=== PATIENT | female | born 1930 | race Caucasian/White ===

== ENCOUNTER 2016-12-03 11:30 | Observation (INO) | payer OTHER, BC ==
--- NOTE | 2016-12-03 11:36 | PDOC ---
History of Present Illness - General History Source: Patient Exam Limitations: No Limitations - History of Present Illness Initial Comments: 12/03/16 13:31 The patient is a 86 year old female, BIBA with a significant past medical history of diabetes (noncompliant), HTN, hyperchostermia, and CHF who presents to the emergency department with possible TIA/CVA. The patient reports this morning being well, (pt notes some right eye tearing, and mild right eye pain which is chronic). The daughter reports around 10:30am today the patient developing dizziness, a few minutes later pt developed some slurred speech, and daugther noted pt had left sided facial droope/weakness [place] a [place]. Daughter reports the patientdizziness/speech problem aslting approx 15 minutes. As per EMS upon ED arrival the patient was nonverbal and cannot speak in full sentences or answer their questions. EMS reports enroute to the ER symptoms completely resolving and returning to baseline. Patient was here 2-3 weeks ago with right sided eye pain and weakness. Pts BGM was 70 per EMS, and was noted to be very hypertensive in the 200s upontheir arrival. She denies chest pain and shortness of breath. She denies fever and chills She denies nausea, vomit, diarrhea and constipation. She denies dysuria, frequency, urgency and hematuria. Allergies: Lactose Social history: Former smoker. PCP: <Dell Patel - Last Filed: 12/03/16 13:39> <Balwinder Marquez - Last Filed: 12/03/16 21:39> - General Chief Complaint: CVA/TIA Stated Complaint: CVA/TIA Time Seen by Provider: 12/03/16 11:36 Past History <Dell Patel - Last Filed: 12/03/16 13:39> - Past Medical History Anemia: No Asthma: No Cancer: No Cardiac Disorders: No CVA: No COPD: No CHF: Yes Dementia: No Diabetes: Yes GI Disorders: No Disorders: No HTN: Yes Hypercholesterolemia: Yes Liver Disease: No Seizures: No Thyroid Disease: No - Surgical History Abdominal Surgery: No Appendectomy: No Cardiac Surgery: No Cholecystectomy: Yes Lung Surgery: No Neurologic Surgery: No Orthopedic Surgery: No - Psycho/Social/Smoking Cessation Hx Suicidal Ideation: No Smoking History: Never smoked Have you smoked in the past 12 months: No Hx Alcohol Use: Yes (SOCIAL) Drug/Substance Use Hx: No Substance Use Type: None Hx Substance Use Treatment: No <Balwinder Marquez - Last Filed: 12/03/16 21:39> - Past Medical History Allergies/Adverse Reactions: Allergies Allergy/AdvReac Type Severity Reaction Status Date / Time lactose Allergy Mild Verified 12/03/16 12:03 Home Medications: Ambulatory Orders Aspirin Coated [Ecotrin -] 81 mg PO DAILY #0 tablet.ec 09/15/12 Atenolol [Tenormin -] 25 mg PO DAILY #0 tablet 09/15/12 Quinapril HCl [Accupril -] 20 mg PO DAILY #0 tablet 09/15/12 Rosuvastatin Calcium [Crestor] 10 mg PO UTDICT 12/03/16 Review of Systems - Review of Systems Able to Perform ROS?: Yes Comments:: 12/03/16 13:31 CONSTITUTIONAL: Reported: Generalized Weakness. No reported: Fever, Chills, Diaphoresis, Malaise , Loss of Appetite HEENT: No reported: Rhinorrhea, Nasal Congestion, Throat Pain, Throat Swelling, Difficulty Swallowing, Mouth Swelling, Ear Pain, Eye Pain, Visual Changes CARDIOVASCULAR: No reported: Chest Pain, Syncope, Palpitations, Irregular Heart Rate, Lightheadedness, Peripheral Edema RESPIRATORY: No reported: Cough, Shortness of Breath, SOB with Exertion, Orthopnea, Wheezing , Stridor, Hemoptysis GASTROINTESTINAL: No reported: Abdominal pain, Abdominal Distension, Nausea, Vomiting, Diarrhea, Constipation, Melena, Hematochezia GENITOURINARY: No reported: Dysuria, Frequency, Urgency, Hesitancy, Flank Pain, Genital Pain MUSCULOSKELETAL: No reported: Myalgia, Arthralgia, Joint Swelling, Back pain, Neck Pain SKIN: No reported: Rash, Itching, Pallor HEMEATOLOGIC/IMMUNOLOGIC: No reported: Easy Bleeding, Easy Bruising, Lymphadenopathy, Frequent infections ENDOCRINE: No reported: Unexplained Weight Gain, Unexplained Weight Loss, Heat Intolerance , Cold Intolerance NEUROLOGIC: Reported: slurred speech and dizziness, weakeness . No reported: Headache, Unsteady Gait, Seizure, Mental Status Changes, Incontinence PSYCHIATRIC: No reported: Anxiety, Depression <Dell Patel - Last Filed: 12/03/16 13:39> *Physical Exam - Vital Signs Last Vital Signs Temp Pulse Resp BP Pulse Ox 98.2 F 68 18 217/88 0 L 12/03/16 11:36 12/03/16 11:36 12/03/16 11:36 12/03/16 11:36 12/03/16 11:36 - Physical Exam Comments: 12/03/16 13:32 GENERAL: The patient is awake, alert, and fully oriented, Nontoxic - in no acute distress. HEAD: Normocephalic, atraumatic. EYES: extraocular movements intact, sclera anicteric, conjunctiva clear. ENT: Normal voice, Moist mucous membranes. NECK: Normal range of motion, supple LUNGS: Breath sounds equal, clear to auscultation bilaterally. No wheezes, no rhonchi, no rales. HEART: Regular rate and rhythm, without murmur, rub or gallop. ABDOMEN: Soft, nontender, normoactive bowel sounds. No guarding, no rebound.No CVA tenderness EXTREMITIES: Normal range of motion, no edema. No clubbing or cyanosis. No cords , erythema, or tenderness. NEUROLOGICAL: Mental status: The patient is oriented x3. Cranial nerves: Cranial nerves II through XII are intact Motor: The upper extremities are 5 over 5 in all muscle groups. The lower extremities are 5 over 5 in all muscle groups. No pronator drift. Sensation: Sensation is intact to light touch throughout. Neg romberg Cerebellar: Fhyooz-rutqhi-kakt is normal in both upper extremities. Heel-knee- mcallister is normal in both lower extremities. Reflexes: +1 b/l patellar erflexes Gait : deferred PSYCH: Normal mood, normal affect. SKIN: Warm, Dry, normal turgor. <Dell Patel - Last Filed: 12/03/16 13:39> NIH Stroke Scale - Last Known Well Date/Time & Onset Date Last Known Well: 12/03/16 Time Last Known Well: 10:30 - Initial Evaluation Level of consciousness: Alert Ask patient the month and their age: Answers both correctly Ask patient to open & close eyes; make fist and let go: Obeys both correctly Best gaze (horizontal eye movement): Normal Visual field testing: No visual field loss Facial paresis (Show teeth/raise eyebrows/close eyes tight): Normal symmetrical movement Motor Function: Left Arm: Normal Motor Function: Right Arm: Normal (extends arm 90 (or 45) degrees for 10 seconds without drift Motor Function: Left Leg: Normal (extends leg 30 degrees for 5 seconds without drift) Motor Function: Right Leg: Normal (extends leg 30 degrees for 5 seconds without drift) Limb Ataxia: No ataxia Sensory(Use pinprick test arms,legs,trunk,face/side to side): Normal Best language (Describe picture, name items, read sentences): No Aphasia Dysarthria (read several words): Normal articulation Extinction and Inattention: No abnormality - Total Score NIH Stroke Scale Score: 0 <Balwinder Marquez - Last Filed: 12/03/16 21:39> tPA Exclusion Checklist 0-3hr - Time Elapsed Date last known well: 12/03/16 Time last known well: 10:30 Elaspsed time: Day(s) and 11 Hour(s) and 9 Minutes - Thrombolytic Therapy Candidate Is the patient eligible for Thrombolytic Therapy?: No - Relative Exclusion Criteria 0-3h Rapid improvement: Yes - Ineligibility reason(s) Reasons No tPA given: See reason(s) noted above <Balwinder Marquez - Last Filed: 12/03/16 21:39> Heart Score/ECG Review - ECG Impressions Comment:: 12/03/16 11:50 Twelve-lead EKG was performed and reviewed by me. There is normal sinus rhythm with a normal rate. lvh Abnormal R wave progression There are no ST or T wave abnormalities. <Balwinder Marquez - Last Filed: 12/03/16 21:39> Critical Care Time/MDM Note - Medical Decision Making Note: 12/03/16 11:43 Documentation prepared by Dell Patel, acting as medical technicians for Balwinder Marquez MD. 12/03/16 12:[address] (STROKE) impressions reported by : No evidence of acute intracranial hemorrhage, edema, midline shift, mass effect , or skull fracture. No CT evidence of acute territorial infarction. 12/03/16 12:21 CHEST X-RAY impressions reported by : Large heart. No acute pathology. 12/03/16 13:33 Call made to 's office was sent to [employer] twice. 12/03/16 13:39 Microblog sent to and call made to office, awaiting call back. <Dell Patel - Last Filed: 12/03/16 13:39> - Medical Decision Making Note: 12/03/16 11:38 86y F hx of htn, hl presents with sudden onset of dizziness[place]dysarthria [place], without associated headache, vision changes. There was left sided weakness (facial droop/left arm weakness per daugther) pt was standing at the time and was ambulatory with assistance from family - sypmtoms onset approx 10: 30am, resolved by the time she was boarding the ambulance (~approx 15 min), pts BP noted to be elevated to 200s systolic. BGM of 70. On arrival the pts bp was hypertensive, but neuro exam was unremarabkle code gold was initiated not TPA candidate due to rapid resolution of sypmtoms case d/w dr. Capone (NEuro) if CT negative, will give ASA pt endorses being noncompliant with meds. A portion of this note was documented by scribe services under my direction. I have reviewed the details of the note, within reason, and agree with the documentation with the following case summary and management plan written by me 12/03/16 13:[address] head negative for acute findings will admit for further workup pt given ASA will admit under charlie long service I spent ~35 minutes of Critical Care time, excluding separately billable procedures, involving high complexity decision making to assess, manipulate and support vital system function(s) to treat single or multiple vital organ system failure and/or to prevent further life threatening deterioration of the patient' s condition. 12/03/16 15:58 dr. chowdhury is on vacation hospitlaist covering d/w dr. fernandez agreed with management and observation status for further eavluation of TIA Case discussed in detail with admitting physician including history, physical exam and ancillary studies. Admitting physician has assumed care for the patient, will follow all pending diagnostics and will complete the evaluation and treatment. <Balwinder Marquez - Last Filed: 12/03/16 21:39> Discharge Disposition <Dell Patel - Last Filed: 12/03/16 13:39> - Discharge Dispostion Admit: Yes <Balwinder Marquez - Last Filed: 12/03/16 21:39> - Diagnosis TIA (transient ischemic attack) Qualifiers: Transient cerebral ischemia type: unspecified Qualified Code(s): G45.9 - Transient cerebral ischemic attack, unspecified - Referrals
[2016-12-03 11:37] VITALS: BMI 20.1
[2016-12-03] MEDS ORDERED: SODIUM CHLORIDE 1,000 ML IV SCH (11:45)
[2016-12-03 12:06] LABS: EOSINOPHIL 3.8 % (0-4.5); MCH 29.9 pg (25.7-33.7); MCHC 33.1 g/dl (32.0-36.0); MEAN CELL VOLUME 90.3 fl (80-96); MEAN PLT VOLUME 7.5 fl (7.5-11.1); NEUTROPHILS 70.5 % (42.8-82.8); PLATELET COUNT 369 K/MM3 (134-434); RDW 13.2 % (11.6-15.6); WHITE BLOOD COUNT 9.1 K/mm3 (4.0-10.0)
[2016-12-03] MEDS ORDERED: ASPIRIN 81 MG CHEWABLE TABLETS PO ONE (12:06)
[2016-12-03] MEDS ORDERED: ASPIRIN 81 MG CHEWABLE TABLETS ONE (12:10)
[2016-12-03 12:22] LABS: INR 0.98 (0.82-1.09); PROTHROMBIN TIME (PATIENT) 10.8 SEC (9.98-11.88)
[2016-12-03 12:31] LABS: ALBUMIN 3.7 g/dl (3.4-5.0); ANION GAP 8 (8-16); BILIRUBIN,TOTAL 0.3 mg/dL (0.2-1.0); CALCIUM 9.5 mg/dL (8.5-10.1); CHOLESTEROL 178 mg/dL (50-200); CO2 26 mmol/L (21-32); GLUCOSE,RANDOM 169 mg/dL (74-106); LDL CHOLESTEROL (ONLY SJRH) 112 mg/dL (5-100); SGOT/AST 17 U/L (15-37); SGPT/ALT 20 U/L (12-78); TOT PROT 6.9 g/dl (6.4-8.2)
[2016-12-03 12:32] LABS: ALK PHOS 79 U/L (45-117); TROPONIN I < 0.02 ng/ml (0.00-0.05)
--- NOTE | 2016-12-03 13:19 | CONSULT ---
Consult Consult Specialty:: Neurology - History of Present Illness Chief Complaint: lightheadedness associated with diffficulty speaking History of Present Illness: 86 yo with hTistory of diabetes (noncompliant), HTN, hyperchostermia, and CHF was transferred via ambulance to the ED after [place]. She states she forgot her medication but did have breakfast. She said she felt lightheaded and had difficulty speaking, however by the time EMS arrived she was feeling fine. (symptoms onset 10am) The patient had no evidence of stroke with neg CT and resolution of symptoms TPA is not indicated. - History Source Limitations to Obtaining History: No Limitations - Alcohol/Substance Use Hx Alcohol Use: Yes (SOCIAL) - Smoking History Smoking history: Never smoked Have you smoked in the past 12 months: No Home Medications - Allergies Allergies/Adverse Reactions: Allergies Allergy/AdvReac Type Severity Reaction Status Date / Time lactose Allergy Mild Verified 12/03/16 12:03 - Home Medications Home Medications: Ambulatory Orders Aspirin Coated [Ecotrin -] 81 mg PO DAILY #0 tablet.ec 09/15/12 Atenolol [Tenormin -] 25 mg PO DAILY #0 tablet 09/15/12 Quinapril HCl [Accupril -] 20 mg PO DAILY #0 tablet 09/15/12 Rosuvastatin Calcium [Crestor] 10 mg PO UTDICT 12/03/16 Physical Exam Vital Signs: Vital Signs Temperature 98.2 F 12/03/16 11:36 Pulse Rate 64 12/03/16 12:03 Respiratory Rate 18 12/03/16 12:03 Blood Pressure 121/82 12/03/16 12:03 O2 Sat by Pulse Oximetry (%) 100 12/03/16 12:03 Constitutional: Yes: Well Nourished, No Distress, Calm Eyes: Yes: Conjunctiva Clear, EOM Intact, PERRL. No: Diplopia, Ptosis HENT: Yes: Atraumatic Neck: Yes: Supple Cardiovascular: Yes: Regular Rate and Rhythm Respiratory: Yes: Regular Gastrointestinal: Yes: Soft Neurological: Yes: Alert, Oriented, Babinski negative, Cran Nerves II-XII Intact. No: Aphasia, Ataxia, Dysarthria, Loss of Sensation, Paresthesia, Unsteady Gait, Weakness Labs: CBC, BMP 12/03/16 11:55 12/03/16 11:55 Assessment/Plan Acute syncope, likely vasovagal however a cardiac etiology or lacunar infarct cannot be excluded with hx of poor compliance with treatment of long standing DM and HTN CT neg however will order MRI with MRA to asses for arterial stenosis and lacunar infarctions. P: TPA not indicated with no evidence of acute infarct Optimize medical condition with aggressive management of chronic medical conditions to reduce stroke risk by strict control of BP, Lipids and glucose Antiplatelet therapy per IM/Cardiology as indicated with vascular disease risk factors and comorbid medical illness.
[2016-12-03 14:13] LABS: URINE APPEARANCE CLEAR; URINE BILIRUBIN NEGATIVE (NEGATIVE); URINE BLOOD NEGATIVE (NEGATIVE); URINE COLOR STRAW; URINE GLUCOSE (UA) NEGATIVE (NEGATIVE); URINE KETONE NEGATIVE (NEGATIVE); URINE NITRITE NEGATIVE (NEGATIVE); URINE PROTEIN NEGATIVE (NEGATIVE); URINE UROBILINOGEN NEGATIVE E.U./dl (0.2-1.0)
[2016-12-03 14:14] LABS: URINE LEUK ESTERASE TRACE (NEGATIVE)
[2016-12-03 14:17] LABS: URINE HYALINE CAST 1 /lpf; URINE RBC 1 /hpf (0-3); URINE WBC 3 /hpf (3-5)
--- NOTE | 2016-12-03 16:35 | HP ---
PCP: Jessee Jean-Baptiste CHIEF COMPLAINT: Dizziness HISTORY OF PRESENT ILLNESS This is an 86-year-old woman who comes to the ER today because of dizziness. Around 10:30 am, she developed lightheadedness. Within the next 10 minutes, her daughter noted her speech was slurred and the left side of her face appeared weak. EMS was called. Her SBP was in the 200s and fingerstick in the 70s. EMS noted that she was unable to answer questions or speak in full sentences. While in the ambulance, she returned to her baseline. The entire episode lasted 20-30 minutes. She had not taken her BP medications this morning. She is on no diabetes medication because she was unable to tolerate metformin. She had been seen in the ER on 11/06/16 for right eye pain and dizziness. Symptoms resolved. Head CT showed right falguni bullosa and thickened mucosa or polyp in left maxillary sinus. She was discharged and advised to follow-up with Dr. Jean-Baptiste. PAST MEDICAL HISTORY Hypertension Hyperlipidemia Type 2 diabetes mellitus PAST SURGICAL HISTORY Cholecystectomy Allergies lactose Allergy (Mild, Verified 12/03/16 12:03) HOME MEDICATIONS 3 Medication Instructions Recorded Aspirin Coated [Ecotrin -] 81 mg PO DAILY #0 tablet.ec 09/15/12 Atenolol [Tenormin -] 25 mg PO DAILY #0 tablet 09/15/12 Quinapril HCl [Accupril -] 20 mg PO DAILY #0 tablet 09/15/12 Rosuvastatin Calcium [Crestor] 10 mg PO UTDICT 12/03/16 Social History: Smoking: Former smoker Alcohol: Rare Drugs: None Recent Travel: No Family History: Non-contributory REVIEW OF SYSTEMS CONSTITUTIONAL: Absent: fever, chills, diaphoresis, generalized weakness, malaise, loss of appetite, weight change HEENT: Present: right eye pain. Absent: rhinorrhea, nasal congestion, throat pain, throat swelling, difficulty swallowing, mouth swelling, ear pain, visual changes CARDIOVASCULAR: Present: lightheadedness. Absent: chest pain, syncope, palpitations, peripheral edema RESPIRATORY: Absent: cough, shortness of breath, dyspnea with exertion, orthopnea, wheezing, stridor, hemoptysis GASTROINTESTINAL: Absent: abdominal pain, abdominal distension, nausea, vomiting , diarrhea, constipation, melena, hematochezia GENITOURINARY: Absent: dysuria, frequency, urgency, hesitancy, hematuria, flank pain MUSCULOSKELETAL: Absent: myalgia, arthralgia, joint swelling, back pain, neck pain SKIN: Absent: rash, itching, pallor HEMATOLOGIC/IMMUNOLOGIC: Absent: easy bleeding, easy bruising, lymphadenopathy, frequent infections ENDOCRINE: Absent: unexplained weight gain, unexplained weight loss, heat intolerance, cold intolerance NEUROLOGIC: Present: dizziness, unsteady gait, slurred speech. Absent: headache , focal weakness, paresthesias, seizure, mental status changes, bladder or bowel incontinence PSYCHIATRIC: Absent: anxiety, depression, suicidal or homicidal ideation, hallucinations. PHYSICAL EXAMINATION Vital Signs Period Temp Pulse Resp BP Sys/Erwin Pulse Ox Last 24 Hr 98.2 F 60-68 18-20 121-217/72-88 0-100 GENERAL: Awake, alert, and fully oriented, in no acute distress. HEAD: Normal with no signs of trauma. EYES: Pupils equal, round and reactive to light, extraocular movements intact, sclerae anicteric, conjunctivae clear. EARS, NOSE, THROAT: Ears normal, nares patent, oropharynx clear without exudates. Moist mucous membranes. NECK: Normal range of motion, supple without lymphadenopathy, JVD, or masses. LUNGS: Breath sounds equal, clear to auscultation bilaterally. No wheezes, and no crackles. No accessory muscle use. HEART: Regular rate and rhythm, normal S1 and S2 without murmur, rub or gallop. ABDOMEN: Soft, nontender, not distended, normoactive bowel sounds, no guarding, no rebound, no masses. No hepatomegaly or splenomegaly. MUSCULOSKELETAL: Normal range of motion at all joints. No bony deformities or tenderness. No CVA tenderness. UPPER EXTREMITIES: 2+ pulses, warm, well-perfused. No cyanosis. No clubbing. Cap refill <2 seconds. No peripheral edema. LOWER EXTREMITIES: 2+ pulses, warm, well-perfused. No calf tenderness. No peripheral edema. NEUROLOGICAL: Cranial nerves II-XII intact. Normal speech. Gait not observed. PSYCHIATRIC: Cooperative. Good eye contact. Appropriate mood and affect. SKIN: Warm, dry, normal turgor, no rashes or lesions noted. Laboratory Tests 12/03/16 12/03/16 12/03/16 11:55 11:55 11:55 WBC 9.1 RBC 4.69 Hgb 14.0 Hct 42.3 MCV 90.3 MCHC 33.1 RDW 13.2 Plt Count 369 MPV 7.5 Neutrophils % 70.5 Lymphocytes % 18.3 Monocytes % 6.4 Eosinophils % 3.8 Basophils % 1.0 INR 0.98 Sodium Potassium Chloride Carbon Dioxide Anion Gap BUN Creatinine Creat Clearance w eGFR Random Glucose Calcium Total Bilirubin AST ALT Alkaline Phosphatase Creatine Kinase Troponin I Total Protein Albumin Triglycerides Cholesterol Total LDL Cholesterol HDL Cholesterol Urine Color Straw Urine Appearance Clear Urine pH 6.0 Ur Specific [place] 1.014 Urine Protein Negative Urine Glucose (UA) Negative Urine Ketones Negative Urine Blood Negative Urine Nitrite Negative Urine Bilirubin Negative Urine Urobilinogen Negative Ur Leukocyte Esterase Trace H D Urine RBC 1 Urine WBC 3 Hyaline Casts 1 Alcohol, Quantitative Blood Type Antibody Screen 12/03/16 12/03/16 12/03/16 11:55 11:55 11:55 WBC RBC Hgb Hct MCV MCHC RDW Plt Count MPV Neutrophils % Lymphocytes % Monocytes % Eosinophils % Basophils % INR Sodium 140 Potassium 4.7 Chloride 106 Carbon Dioxide 26 Anion Gap 8 BUN 32 H Creatinine 1.0 Creat Clearance w eGFR 52.45 Random Glucose 169 H D Calcium 9.5 Total Bilirubin 0.3 D AST 17 D ALT 20 D Alkaline Phosphatase 79 Creatine Kinase 49 Troponin I < 0.02 Total Protein 6.9 Albumin 3.7 Triglycerides 135 Cholesterol 178 Total LDL Cholesterol 112 H HDL Cholesterol 54 Urine Color Urine Appearance Urine pH Ur Specific [place] Urine Protein Urine Glucose (UA) Urine Ketones Urine Blood Urine Nitrite Urine Bilirubin Urine Urobilinogen Ur Leukocyte Esterase Urine RBC Urine WBC Hyaline Casts Alcohol, Quantitative < 5.0 Blood Type O POSITIVE Antibody Screen Negative Chest x-ray: Cardiomegaly. No acute process. Head CT: No infarct, mass, hemorrhage. ASSESSMENT/PLAN: This is an 86-year-old woman with a history of HTN, hyperlipidemia, type 2 DM who presented to the ER because of dizziness, slurred speech and left facial weakness. Her symptoms resolved on the way. She is being placed in observation for further evaluation and treatment of an emergent condition. 1. TIA - Head CT unremarkable - Observe on telemetry - Neurology consult appreciated - Control BP, DM, lipids - Check lipid profile, HgbA1c - Echocardiogram, carotid dopplers, MRI/MRA of brain - Continue aspirin, Crestor 2. Uncontrolled hypertension - Restart Atenolol, Accupril - Monitor BP and adjust medications as needed 3. Hyperlipidemia - Continue Crestor 4. Type 2 diabetes mellitus - Fingersticks with Novolog sliding scale 5. 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 - New Patient This patient is new to me today: Yes Date on this admission: 12/03/16 - Critical Care Critical Care patient: No
[2016-12-03] MEDS: QUINAPRIL HCL 20 MG TABLET (FP) PO SCH (18:50)
[2016-12-03] MEDS: ATENOLOL 25 MG TABLET (FP) PO SCH (18:51)
[2016-12-03] MEDS ORDERED: INSULIN (NOVOLOG) ASPART 100 UNITS/ML 10ML VIAL ONE (20:50)
[2016-12-03] MEDS: ROSUVASTATIN CA 10 MG TABLET (FP) PO SCH (20:59)
[2016-12-03] MEDS: INSULIN SLIDING SCALE (NOVOLOG) 1 VIAL SQ SCH (21:00)
[2016-12-04] MEDS ORDERED: QUINAPRIL HCL 20 MG TABLET (FP) PO ONE (02:15)
[2016-12-04] MEDS ORDERED: ATENOLOL 25 MG TABLET (FP) PO ONE (02:15)
[2016-12-04] MEDS: INSULIN SLIDING SCALE (NOVOLOG) 1 VIAL SQ SCH ×4 (06:04→22:57)
[2016-12-04 08:27] LABS: CALCIUM 8.5 mg/dL (8.5-10.1)
--- NOTE | 2016-12-04 10:10 | CONSULT ---
Admitting History and Physical - Primary Care Physician PCP: Henri Csatillo - Admission History of Present Illness: Per EMR: "Consult Specialty:: Neurology - History of Present Illness Chief Complaint: lightheadedness associated with diffficulty speaking History of Present Illness: 86 yo with hTistory of diabetes (noncompliant), HTN, hyperchostermia, and CHF was transferred via ambulance to the ED [place]. She states she forgot her medication but did have breakfast. She said she felt lightheaded and had difficulty speaking, however by the time EMS arrived she was feeling fine. (symptoms onset 10am) The patient had no evidence of stroke with neg CT and resolution of symptoms TPA is not indicated." History Source: Patient Limitations to Obtaining History: No Limitations - Smoking History Smoking history: Never smoked Have you smoked in the past 12 months: No - Alcohol/Substance Use Hx Alcohol Use: Yes (SOCIAL) History - Admission Reason For Visit: TIA - Diagnostics X-ray: Report Reviewed CT Scan: Report Reviewed MRI: Report Reviewed - General Mental Status: Alert and Oriented, Awake and Alert, Able to Follow Commands Attention: Intact Ability to Follow Directions: Excellent Head/Neck Control: WFL - Hearing Hearing: Normal Speech Evaluation - Communication Primary Language: UKRAINIAN Communication: Yes: Within Normal Limits Oral Expression Ability: Yes: No Impairment - Speech Production Able to Make Needs Known: Yes: WNL Intelligibility: Yes: WNL - Speech Characteristics Voice Loudness: Normal Voice Pitch: Yes: Normal Voice Phonatory-based Quality: Yes: Normal Speech Pattern: Normal Nasal Resonance: Normal Articulation: Yes: Precise Rate of Speech: Intact - Language/Auditory Comprehension Follows: Yes: 2 Stage Simple Commands - Language/Verbal Expression Able to Respond to Simple Queries: Yes: WNL Able to Communicate Wants and Needs: Yes: WNL Functional Communication Status: Yes: WNL - 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: Yes: WNL Short Term Memory: Yes: WNL - Swallow Evaluation/Bedside Assessment Current Nutritional Intake: Regular, Thin Liquids Oral Secretions: Yes: WFL Dentition: Yes: Adequate Facial Symmetry at Rest: Symmetrical Facial Symmetry on Retraction: Symmetrical Sensation: Normal Jaw Position: Closed at Rest Against Resistance Opening: Normal Against Resistance Closing: Normal Pucker Lips: Normal Smile: Normal Lingual Movement: Normal Lingual Speed of Movement: Normal Lingual Movement Strgth Against Opposition: Normal Lingual Movement Characteristics: Normal Velopharyngeal Movement: Normal Laryngeal Elevation: WFL Laryngeal Movement: Able to Palpate Rate of Intake: WFL Labial Seal: WFL Chewing: WFL Oral Prep Time: WFL A-P Transit: WFL Pocketing: None Timing of Swallow: WFL Coughing/Throat Clear: No Change in Voice: No Recommendations - Speech Evaluation, Impression/Plan Impression: Pt reports symptoms of inability to speak with "words disjointed" with spontaneously recovered. Denied slurred speech, c/w dysarthria, drooling, dysphagia, visual deficits,comprehension deficits. - Dysphagia Impressions/Plan Swallowing Skills: [facility] Dysphagia Impressions: No Impairment *Silent aspiration: cannot be R/O at bedside Recommendations: Neuro Consult (w/u in progress) - Recommendations Diet Consistency: Regular Medication Administration: Whole with water Liquids: Thin Liquids
--- NOTE | 2016-12-04 10:49 | EKG ---
Test Reason : Blood Pressure : / mmHG Vent. 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
[2016-12-04] MEDS: ASPIRIN COATED 81 MG TABLET.EC PO SCH (10:58)
[2016-12-04] MEDS: QUINAPRIL HCL 20 MG TABLET (FP) PO SCH (11:00)
[2016-12-04] MEDS: ATENOLOL 25 MG TABLET (FP) PO SCH (11:00)
[2016-12-04] MEDS ORDERED: INSULIN (NOVOLOG) ASPART 100 UNITS/ML 10ML VIAL ONE (12:12)
--- NOTE | 2016-12-04 12:53 | PN ---
Progress Note, Physician Chief Complaint: Ms Houser is without complaint. Denies cp, sob, n/v. - Current Medication List Current Medications: Active Medications Aspirin (Ecotrin -) 81 mg PO DAILY [facility] Last Admin: 12/04/16 10:58 Dose: 81 mg Atenolol (Tenormin -) 25 mg PO DAILY [facility] Last Admin: 12/04/16 11:00 Dose: Not Given Sodium Chloride (Normal Saline -) 500 mls @ 42 mls/hr IV ASDIR [facility] Insulin Aspart (Novolog Vial Sliding Scale -) 1 vial SQ ACHS [facility] PRN Reason: Protocol Last Admin: 12/04/16 11:00 Dose: 2 units Quinapril HCl (Accupril -) 20 mg PO DAILY [facility] Last Admin: 12/04/16 11:00 Dose: Not Given Rosuvastatin Calcium (Crestor -) 10 mg PO HS [facility] Last Admin: 12/03/16 20:59 Dose: 10 mg - Objective Vital Signs: Vital Signs Temperature 98.2 F 12/04/16 10:00 Pulse Rate 57 L 12/04/16 10:00 Respiratory Rate 20 12/04/16 10:00 Blood Pressure 145/75 12/04/16 10:00 O2 Sat by Pulse Oximetry (%) 98 12/04/16 08:00 Constitutional: Yes: Well Nourished, No Distress, Calm Cardiovascular: Yes: Regular Rate and Rhythm. No: Gallop, Murmur, Rub Respiratory: Yes: Regular, CTA Bilaterally. No: Rales, Rhonchi, Wheezes Gastrointestinal: Yes: Normal Bowel Sounds, Soft. No: Distention, Tenderness Extremities: Yes: WNL Edema: No Labs: CBC, BMP 12/04/16 06:00 INR, PTT INR 0.98 (0.82-1.09) 12/03/16 11:55 Problem List - Problems (1) TIA (transient ischemic attack) Assessment/Plan: -possible TIA secondary to hypertensive urgency, also possibly dehydration -ECHO most consistent with dehydration but symptoms similar to TIA -appreciate neurology assistance -reviewed all studies -will give gentle hydration -plan for discharge tomorrow -continue aspirin Code(s): G45.9 - TRANSIENT CEREBRAL ISCHEMIC ATTACK, UNSPECIFIED Qualifiers: Transient cerebral ischemia type: unspecified Qualified Code(s): G45.9 - Transient cerebral ischemic attack, unspecified (2) Hypertension Assessment/Plan: -better control on home regimen -continue Code(s): I10 - ESSENTIAL (PRIMARY) HYPERTENSION (3) Hyperlipidemia Assessment/Plan: -continue crestor Code(s): E78.5 - HYPERLIPIDEMIA, UNSPECIFIED
[2016-12-04] MEDS ORDERED: SODIUM CHLORIDE 500 ML IV SCH (13:00)
--- NOTE | 2016-12-04 13:01 | PN ---
Progress Note, Physician History of Present Illness: up in chair, bright and alert with make up on and no complaints visiting with daughter - Current Medication List Current Medications: Active Medications Aspirin (Ecotrin -) 81 mg PO DAILY [facility] Last Admin: 12/04/16 10:58 Dose: 81 mg Atenolol (Tenormin -) 25 mg PO DAILY [facility] Last Admin: 12/04/16 11:00 Dose: Not Given Sodium Chloride (Normal Saline -) 500 mls @ 42 mls/hr IV ASDIR [facility] Insulin Aspart (Novolog Vial Sliding Scale -) 1 vial SQ ACHS [facility] PRN Reason: Protocol Last Admin: 12/04/16 11:00 Dose: 2 units Quinapril HCl (Accupril -) 20 mg PO DAILY [facility] Last Admin: 12/04/16 11:00 Dose: Not Given Rosuvastatin Calcium (Crestor -) 10 mg PO HS [facility] Last Admin: 12/03/16 20:59 Dose: 10 mg - Objective Vital Signs: Vital Signs Temperature 98.2 F 12/04/16 10:00 Pulse Rate 57 L 12/04/16 10:00 Respiratory Rate 20 12/04/16 10:00 Blood Pressure 145/75 12/04/16 10:00 O2 Sat by Pulse Oximetry (%) 98 12/04/16 08:00 Constitutional: Yes: Well Nourished, No Distress HENT: Yes: WNL, Atraumatic, Normocephalic Neck: Yes: Supple Cardiovascular: Yes: Regular Rate and Rhythm Respiratory: Yes: Regular Neurological: Yes: Alert, Oriented, Babinski negative, Cran Nerves II-XII Intact. No: Aphasia, Ataxia, Confusion, Dysarthria, Facial Droop, Loss of Sensation, Paresthesia, Weakness ...Motor Strength: WNL Labs: CBC, BMP 12/04/16 06:00 INR, PTT INR 0.98 (0.82-1.09) 12/03/16 11:55 Assessment/Plan No evidence of an acute neurological deficit and/or stroke. 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
[2016-12-04] MEDS: ROSUVASTATIN CA 10 MG TABLET (FP) PO SCH (23:00)
[2016-12-05] MEDS: INSULIN SLIDING SCALE (NOVOLOG) 1 VIAL SQ SCH ×2 (06:23→11:55)
[2016-12-05 07:32] LABS: BASOPHIL 0.6 % (0-2.0); EOSINOPHIL 5.7 % (0-4.5); MCH 30.2 pg (25.7-33.7); MCHC 33.9 g/dl (32.0-36.0); MEAN CELL VOLUME 89.3 fl (80-96); MEAN PLT VOLUME 7.7 fl (7.5-11.1); NEUTROPHILS 66.7 % (42.8-82.8); PLATELET COUNT 353 K/MM3 (134-434); RDW 13.3 % (11.6-15.6); WHITE BLOOD COUNT 10.3 K/mm3 (4.0-10.0)
[2016-12-05 07:41] LABS: CALCIUM 8.8 mg/dL (8.5-10.1); CREATININE 0.9 mg/dL (0.55-1.02)
[2016-12-05] MEDS: ATENOLOL 25 MG TABLET (FP) PO SCH (09:03)
[2016-12-05] MEDS: QUINAPRIL HCL 20 MG TABLET (FP) PO SCH (09:03)
[2016-12-05] MEDS: ASPIRIN COATED 81 MG TABLET.EC PO SCH (09:03)
[2016-12-05 11:33] VITALS: BP 148/82; PULSE 62; TEMP 97.8
[2016-12-05] MEDS ORDERED: INSULIN (NOVOLOG) ASPART 100 UNITS/ML 10ML VIAL ONE (11:41)
--- NOTE | 2016-12-05 12:46 | PN ---
Progress Note, Physician History of Present Illness: up in chair, bright and alert with make up on and no complaints visiting with daughter and clergy. Transient sensory symptoms in the hand last pm, with no recurrence. - Current Medication List Current Medications: Active Medications Aspirin (Ecotrin -) 81 mg PO DAILY [facility] Last Admin: 12/05/16 09:03 Dose: 81 mg Atenolol (Tenormin -) 25 mg PO DAILY [facility] Last Admin: 12/05/16 09:03 Dose: 25 mg Sodium Chloride (Normal Saline -) 500 mls @ 42 mls/hr IV ASDIR [facility] Last Admin: 12/04/16 13:31 Dose: 42 mls/hr Insulin Aspart (Novolog Vial Sliding Scale -) 1 vial SQ ACHS [facility] PRN Reason: Protocol Last Admin: 12/05/16 11:55 Dose: 4 units Quinapril HCl (Accupril -) 20 mg PO DAILY [facility] Last Admin: 12/05/16 09:03 Dose: 20 mg Rosuvastatin Calcium (Crestor -) 10 mg PO HS [facility] Last Admin: 12/04/16 23:00 Dose: 10 mg - Objective Vital Signs: Vital Signs Temperature 97.8 F 12/05/16 10:00 Pulse Rate 62 12/05/16 10:00 Respiratory Rate 18 12/05/16 10:00 Blood Pressure 148/82 12/05/16 10:00 O2 Sat by Pulse Oximetry (%) 95 12/05/16 09:00 Constitutional: Yes: Well Nourished, No Distress Eyes: Yes: Conjunctiva Clear, EOM Intact, PERRL. No: Diplopia, Ptosis HENT: Yes: Atraumatic Neck: Yes: Supple Respiratory: Yes: Regular Neurological: Yes: Alert, Oriented, Cran Nerves II-XII Intact. No: Aphasia, Ataxia, Loss of Sensation, Weakness (normal gait) ...Motor Strength: WNL Labs: CBC, BMP 12/05/16 06:00 12/05/16 06:00 INR, PTT INR 0.98 (0.82-1.09) 12/03/16 11:55 Assessment/Plan No evidence of an acute neurological deficit and/or stroke. 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
--- NOTE | 2016-12-05 13:38 | DS ---
Physical Examination Vital Signs: Vital Signs Temperature 97.8 F 12/05/16 10:00 Pulse Rate 62 12/05/16 10:00 Respiratory Rate 18 12/05/16 10:00 Blood Pressure 148/82 12/05/16 10:00 O2 Sat by Pulse Oximetry (%) 95 12/05/16 09:00 Labs: CBC, BMP 12/05/16 06:00 12/05/16 06:00 Discharge Summary Reason For Visit: TIA Current Active Problems Hyperlipidemia (Acute) Hypertension (Acute) TIA (transient ischemic attack) (Acute) Pain, eye, right (Chronic) Condition: Stable - Instructions Diet, Activity, Other Instructions: resume previous diet and activity Referrals: Jessee Jean-Baptiste MD [Primary Care Provider] - Disposition: HOME - Home Medications Comprehensive Discharge Medication List: Ambulatory Orders Aspirin Coated [Ecotrin -] 81 mg PO DAILY #0 tablet.ec 09/15/12 Atenolol [Tenormin -] 25 mg PO DAILY #0 tablet 09/15/12 Quinapril HCl [Accupril -] 20 mg PO DAILY #0 tablet 09/15/12 Rosuvastatin Calcium [Crestor] 10 mg PO UTDICT 12/03/16
== END 2016-12-05 16:05 | disposition home or self-care (01) ==
LOC: JER 11:30 → JERBED 14:27 → J4S 16:25
PROVIDERS: ADMIT Internal Medicine; ATTEND Internal Medicine
DX: G45.8 Other transient cerebral ischemic attacks and related syndromes (principal); E11.9 Type 2 diabetes mellitus without complications; E78.5 Hyperlipidemia, unspecified; I12.9 Hypertensive chronic kidney disease with stage 1 through stage 4 chronic kidney disease, or unspecified chronic kidney disease; N18.3 Chronic kidney disease, stage 3 (moderate)
CPT/HCPCS: 36415; 70450-TC; 70544-TC; 70551-TC; 71010-TC; 80048; 80053; 80061; 80307; 81003; 81015; 82465; 82550; 83036; 83718; 83721; 84478; 84484; 85025; 85610; 86850; 86900; 86901; 93005; 93010; 93306-TC; 93880-TC; 97116-GP; 97163-GP; 99284-25; G0378

== ENCOUNTER 2019-10-02 07:14 | Emergency (ER) | payer OTHER, BC ==
[2019-10-02 07:45] VITALS: BP 159/83; PULSE 59; TEMP 98.1; BMI 19.3
--- NOTE | 2019-10-02 07:55 | PDOC ---
History of Present Illness - General History Source: Patient Exam Limitations: No Limitations <Amrita Parker - Last Filed: 10/02/19 13:17> <Alissa Ceja - Last Filed: 10/02/19 18:30> - General Chief Complaint: Injury Stated Complaint: FALL Time Seen by Provider: 10/02/19 07:38 Past History - Travel Traveled outside of the country in the last 30 days: No Close contact w/someone who was outside of country & ill: No - Past Medical History Anemia: No Asthma: No Cancer: No Cardiac Disorders: No CVA: No COPD: No CHF: Yes Dementia: No Diabetes: Yes GI Disorders: No Disorders: No HTN: Yes Hypercholesterolemia: Yes Liver Disease: No Seizures: No Thyroid Disease: No - Surgical History Abdominal Surgery: No Appendectomy: No Cardiac Surgery: No Cholecystectomy: Yes Lung Surgery: No Neurologic Surgery: No Orthopedic Surgery: No - Psycho Social/Smoking Cessation Hx Smoking History: Former smoker Have you smoked in the past 12 months: No If you are a former smoker, when did you quit?: 1959 Information on smoking cessation initiated: No Hx Alcohol Use: No Drug/Substance Use Hx: No Substance Use Type: None Hx Substance Use Treatment: No <Amrita Parker - Last Filed: 10/02/19 13:17> <Alissa Ceja - Last Filed: 10/02/19 18:30> - Past Medical History Allergies/Adverse Reactions: Allergies Allergy/AdvReac Type Severity Reaction Status Date / Time lactose Allergy Mild Verified 10/02/19 07:34 Home Medications: Ambulatory Orders Aspirin Coated [Ecotrin -] 81 mg PO DAILY #0 tablet.ec 09/15/12 Atenolol [Tenormin -] 25 mg PO DAILY #0 tablet 09/15/12 Quinapril HCl [Accupril -] 20 mg PO DAILY #0 tablet 09/15/12 Rosuvastatin Calcium [Crestor] 10 mg PO UTDICT 12/03/16 Blood Pressure Test Kit [Blood Pressure Kit] 1 each WEEKLY #1 kit 12/05/16 Blood Sugar Diagnostic [One Touch Ultra Test Strips #50 -] 1 each SQ DAILY #1 box 12/05/16 Blood-Glucose Meter [One Touch Ultra 2 System -] 1 each ASDIR #1 kit Glipizide [Glipizide Xl] 2.5 mg PO BK #30 tab.er.24 12/05/16 Review of Systems - Review of Systems Able to Perform ROS?: Yes Comments:: 10/02/19 13:11 CONSTITUTIONAL: Absent: fever, chills, diaphoresis, generalized weakness, malaise, loss of appetite HEENT: Absent: rhinorrhea, nasal congestion, throat pain, throat swelling, difficulty swallowing, mouth swelling, ear pain, eye pain, visual Changes CARDIOVASCULAR: Absent: chest pain, loss of consciousness, palpitations, irregular heart rate, peripheral edema RESPIRATORY: Absent: cough, shortness of breath, dyspnea with exertion, orthopnea, wheezing, stridor, hemoptysis GASTROINTESTINAL: Absent: abdominal pain, abdominal distension, nausea, vomiting, diarrhea, constipation, melena, hematochezia GENITOURINARY: Absent: dysuria, frequency, urgency, hesitancy, hematuria, flank pain, genital pain MUSCULOSKELETAL: Present: Low back pain Absent: myalgia, arthralgia, joint swelling SKIN: Absent: rash, itching, pallor HEMATOLOGIC/IMMUNOLOGIC: Absent: easy bleeding, easy bruising, lymphadenopathy, frequent infections ENDOCRINE: Absent: unexplained weight gain, unexplained weight loss, heat intolerance, cold intolerance NEUROLOGIC: Absent: headache, focal weakness or paresthesias, dizziness, unsteady gait, seizure, mental status changes, bladder or bowel incontinence PSYCHIATRIC: Absent: anxiety, depression, suicidal or homicidal ideation, hallucinations. Is the patient limited Afghan proficient: No <Amrita Parker - Last Filed: 10/02/19 13:17> *Physical Exam - Vital Signs Last Vital Signs Temp Pulse Resp BP Pulse Ox 98.1 F 59 L 18 159/83 99 10/02/19 07:36 10/02/19 07:36 10/02/19 07:36 10/02/19 07:36 10/02/19 07:36 - Physical Exam Comments: 10/02/19 13:11 GENERAL: Well developed, well nourished. Awake and alert. No acute distress. HEENT: Normocephalic, atraumatic. PERRLA, EOMI. No conjunctival pallor. Sclera are non- icteric. Moist mucous membranes. Oropharynx is clear. NECK: Supple. Full ROM. No JVD. Carotid pulses 2+ and symmetric, without bruits. No thyromegaly. No lymphadenopathy. CARDIOVASCULAR: Regular rate and rhythm. No murmurs, rubs, or gallops. Distal pulses are 2+ and symmetric. PULMONARY: No evidence of respiratory distress. Lungs clear to auscultation bilaterally. No wheezing, rales or rhonchi. ABDOMINAL: Soft. Non-tender. Non-distended. No rebound or guarding. No organomegaly. Normoactive bowel sounds. MUSCULOSKELETAL enderness to palpation of the left and right paraspinous muscles L1-L4, with no midline tenderness. Negative straight leg raise testing. Normal range of motion at all joints. No bony deformities or tenderness. No CVA tenderness. EXTREMITIES: No cyanosis. No clubbing. No edema. No calf tenderness. SKIN: Warm and dry. Normal capillary refill. No rashes. No jaundice. NEUROLOGICAL: Alert, awake, appropriate. Cranial nerves 2-12 intact. No deficits to light touch and temperature in face, upper extremities and lower extremities. No motor deficits in the in face, upper extremities and lower extremities. Normoreflexic in the upper and lower extremities. Normal speech. Toes are down- going bilaterally. Gait is normal without ataxia. PSYCHIATRIC: Cooperative. Good eye contact. Appropriate mood and affect. <Amrita Parker - Last Filed: 10/02/19 13:17> - Vital Signs Last Vital Signs Temp Pulse Resp BP Pulse Ox 98.1 F 59 L 18 159/83 99 10/02/19 07:36 10/02/19 07:36 10/02/19 07:36 10/02/19 07:36 10/02/19 07:36 <Alissa Ceja - Last Filed: 10/02/19 18:30> ED Treatment Course - Medications Given in the ED: ED Medications Discontinued Medications Generic Name Dose Route Start Last Admin Trade Name Freq PRN Reason Stop Dose Admin Acetaminophen 650 mg 10/02/19 08:01 10/02/19 08:10 Tylenol - PO 10/02/19 08:02 650 mg ONCE ONE Administration Ibuprofen 600 mg 10/02/19 09:46 10/02/19 10:00 Motrin - PO 10/02/19 09:47 600 mg ONCE ONE Administration Lidocaine 1 patch 10/02/19 08:01 10/02/19 08:10 Lidoderm Patch - TP 10/02/19 08:02 1 patch ONCE ONE Administration <Alissa Ceja - Last Filed: 10/02/19 18:30> Medical Decision Making - Medical Decision Making 10/02/19 13:12 The patient is an 88-year-old female with past medical history of hypertension, hyperlipidemia, presents to the ER today for low back pain status post slip and fall last night. The patient states she was stretching to screw in a light bulb in her basement when she slipped and landed on her low back. She states that she took 2 ibuprofen last night before bed and had minimal pain at that time. When she woke up this morning she states that she could hardly get out of bed so she came to the ER for evaluation. Denies fevers, chills, loss of consciousness, hitting her head, neck pain, nausea, numbness and tingling and weakness to the lower extremities, saddle anesthesia, bladder bowel incontinence. Patient denies blood thinner use. A/P: Low back pain On exam patient with tenderness to palpation of the left and right paraspinous muscles L1-L4, with no midline tenderness. Negative straight leg raise testing b/l. Patient is neurologically intact with no gross deficits. Patient is afebrile, no CVA tenderness. Given age and frail appearance, x-rays of the back ordered Compression fracture of T12 noted Given again patient's frail appearance and osteoporotic bones, CT of the thoracic spine ordered Tylenol and Motrin given for pain with relief Patient asking about when she can leave as her daughter has similar to be. Explained to the patient that radiology has not yet read her CAT scan. Call was placed to radiology at 1030. Patient eloped from the ER at 1100. Was able to walk under her own power <Amrita Parker - Last Filed: 10/02/19 13:17> - Medical Decision Making agree with FLOR Parker, HPI/physical, management plan ?compression fx on T12. CT T-L spine to eval for possible traumatic fx while awaiting results. pt eloped out of department. ct ultimately returned with multilevel degenerative changes, no fx. 10/02/19 18:29 10/02/19 18:30 <Alissa Ceja - Last Filed: 10/02/19 18:30> Discharge - Discharge Information Problems reviewed: Yes <Amrita Parker - Last Filed: 10/02/19 13:17> <Alissa Ceja - Last Filed: 10/02/19 18:30> - Discharge Information Clinical Impression/Diagnosis: Low back pain Qualifiers: Chronicity: acute Back pain laterality: bilateral Sciatica presence: without sciatica Qualified Code(s): M54.5 - Low back pain Condition: Stable Disposition: ELOPED - Follow up/Referral Referrals: Jessee Jean-Baptiste MD [Primary Care Provider] - - Patient Discharge Instructions - Post Discharge Activity
[2019-10-02] MEDS ORDERED: ACETAMINOPHEN 325 MG TABLET (FP) PO ONE (08:01)
[2019-10-02] MEDS ORDERED: LIDOCAINE 5% TOPICAL PATCH TP ONE (08:01)
[2019-10-02] MEDS ORDERED: LIDOCAINE 5% TOPICAL PATCH ONE (08:05)
[2019-10-02] MEDS ORDERED: ACETAMINOPHEN 325 MG TABLET (FP) ONE (08:05)
[2019-10-02] MEDS ORDERED: IBUPROFEN 600 MG TABLET (FP) PO ONE ×2 (09:46→09:57)
== END 2019-10-02 10:45 | disposition left against medical advice (07) ==
LOC: JER 07:14
DX: M54.5 Low back pain (principal); W01.0XXA Fall on same level from slipping, tripping and stumbling without subsequent striking against object, initial encounter; Y93.E9 Activity, other interior property and clothing maintenance; Y92.038 Other place in apartment as the place of occurrence of the external cause; Y99.8 Other external cause status; I11.0 Hypertensive heart disease with heart failure; I50.9 Heart failure, unspecified; E78.5 Hyperlipidemia, unspecified; E11.9 Type 2 diabetes mellitus without complications; Z79.84 Long term (current) use of oral hypoglycemic drugs; Z90.49 Acquired absence of other specified parts of digestive tract; Z91.02 Food additives allergy status
CPT/HCPCS: 72100-TC-FY; 72128-TC; 72131-TC; 99281-25